=== PATIENT | female | born 1995 | race Two or more races ===

== ENCOUNTER 2017-05-01 20:04 | Emergency (ER) | payer MEDICAID ==
[2017-05-01] MEDS ORDERED: Nitrofurantoin Monohydrate/Macrocrystalline 100 MG Cap PO ONE (22:27)
--- NOTE | 2017-05-01 22:32 | EDM.PDOC ---
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 pain with dysuria. Pt is scheduled for a OB U/S this week. No trauma, no N/V/D or any other acute medical issues. BP 134/75 Pulse ox 98% RR 18 Temp 36.3 pulse 87 Onset Date: 04/30/17 Onset Time: 06:00 Duration: Day(s): Location: Reports: Abdomen, Pelvis Quality: Reports: Ache, Burning Severity: Mild Improves with: Reports: Rest Worsens with: Reports: Movement Associated Symptoms: Reports: No Other Symptoms Left Abdomen Pain Score (Numeric/FACES): 8 - Related Data Allergies Allergy/AdvReac Type Severity Reaction Status Date / Time No Known Allergies Allergy Verified 05/01/17 20:13 Home Meds: Home Meds Nitrofurantoin Monohyd/M-Cryst [Macrobid 100 mg Capsule] 100 mg PO BID #15 capsule 05/01/17 [Rx] Prenat Vit Comb.10/Iron/Fa/Dha [Vitafol-OB + DHA] 1 tab PO DAILY 05/01/17 [ History] Past Medical History - Past Health History Medical/Surgical History: Denies Medical/Surgical History Social & Family History - Tobacco Use Smoking Status *Q: Never Smoker Years of Tobacco use: 4 Packs/Tins Daily: 1 Second Hand Smoke Exposure: No - Caffeine Use Caffeine Use: Reports: Soda - Alcohol Use Days Per Week of Alcohol Use: 0 - Recreational Drug Use Recreational Drug Use: No ED ROS GENERAL - Review of Systems Review Of Systems: See Below Constitutional: Reports: No Symptoms HEENT: Reports: No Symptoms Respiratory: Reports: No Symptoms Cardiovascular: Reports: No Symptoms Endocrine: Reports: No Symptoms GI/Abdominal: Reports: No Symptoms : Reports: Dysuria Musculoskeletal: Reports: No Symptoms Skin: Reports: No Symptoms Neurological: Reports: No Symptoms Psychiatric: Reports: No Symptoms Hematologic/Lymphatic: Reports: No Symptoms Immunologic: Reports: No Symptoms ED EXAM, RENAL/ - Physical Exam Exam: See Below Exam Limited By: No Limitations General Appearance: Alert, WD/WN, Mild Distress Eye Exam: Bilateral Eye: Normal Inspection Ears: Normal External Exam Nose: Normal Inspection Throat/Mouth: Normal Inspection Head: Atraumatic, Normocephalic Neck: Normal Inspection, Supple, Non-Tender Respiratory/Chest: No Respiratory Distress, Lungs Clear, Normal Breath Sounds Cardiovascular: Normal Peripheral Pulses, Regular Rate, Rhythm, No Edema GI/Abdominal: Normal Bowel Sounds, Soft, Pelvis Stable, Tender (suprapubic) (Female) Exam: Deferred Rectal (Female) Exam: Deferred Back Exam: Normal Inspection Extremities: Normal Inspection Neurological: Alert, Oriented, CN II-XII Intact, Normal Cognition Psychiatric: Normal Affect, Normal Mood Skin Exam: Warm, Dry, Intact, Normal Color, No Rash Lymphatic: No Adenopathy Course - Vital Signs Text/Narrative:: 21 y.o.f AB1 came to the ed due to low abd. pain with dysuria. Pt is scheduled for a OB U/S this week. No trauma, no N/V/D or any other acute medical issues. BP 134/75 Pulse ox 98% RR 18 Temp 36.3 pulse 87 PE: WNWD F NAD with suprapubic tenderness Labs; UA pos for UTI Impression: , UTI Tx: Macrobid Reexam: Improved Plan: D/C with instructions Last Recorded V/S: Last Vital Signs Temp 36.8 C 05/01/17 20:16 Pulse 83 05/01/17 22:40 Resp 18 05/01/17 20:16 BP 123/70 05/01/17 22:40 Pulse Ox 96 05/01/17 20:16 - Orders/Labs/Meds Labs: Laboratory Tests 05/01/17 Range/Units 20:16 Urine Color Yellow (YELLOW) Urine Appearance Clear (CLEAR) Urine pH 6.0 (5.0-6.5) Ur Specific [place] 1.020 (1.010-1.025) Urine Protein Negative (NEGATIVE) mg/dL Urine Glucose (UA) Normal (NEGATIVE) mg/dL Urine Ketones Negative (NEGATIVE) mg/dL Urine Occult Blood Negative (NEGATIVE) Urine Nitrite Negative (NEGATIVE) Urine Bilirubin Negative (NEGATIVE) Urine Urobilinogen Normal (NEGATIVE) mg/dL Ur Leukocyte Esterase Moderate H (NEGATIVE) Urine RBC 0-5 (0) Urine WBC 0-5 (0) Ur Squamous Epith Cells Moderate H (NS,R,O) Urine Bacteria Few H (NS) Departure - Departure Time of Disposition: 22:29 Disposition: Home, Self-Care 01 Condition: Good Clinical Impression: UTI (urinary tract infection) Qualifiers: Weeks of gestation: less than 8 weeks Qualified Code(s): Z3A.01 - Less than 8 weeks gestation of - Discharge Information Prescriptions: Nitrofurantoin Monohyd/M-Cryst [Macrobid 100 mg Capsule] 100 mg PO BID #15 capsule Instructions: Urinary Tract Infection, Adult Referrals: Kade Cadena MD [Primary Care Provider] - Forms: ED Department Discharge Additional Instructions: Please increase water intake, take Abx as recommended, please f/u, come back if your symptoms get worse acutely
[2017-05-01 22:41] VITALS: BP 123/70
== END 2017-05-01 22:40 | disposition home or self-care (01) ==
LOC: FB.ED 20:04
DX: O23.41 Unspecified infection of urinary tract in pregnancy, first trimester (principal); Z3A.01 Less than 8 weeks gestation of pregnancy
CPT/HCPCS: 81001; 99283; A9270

== ENCOUNTER 2017-06-04 22:19 | Emergency (ER) | payer MEDICAID ==
[2017-06-04 22:35] VITALS: BP 132/74
[2017-06-04] MEDS ORDERED: diphenhydrAMINE 50 MG/ML SDV IM ONE (22:40)
[2017-06-04] MEDS ORDERED: Ketorolac 60 MG/2 ML SDV IM ONE (22:40)
[2017-06-04] MEDS ORDERED: Metoclopramide 10 MG/2 ML SDV IM ONE (22:41)
--- NOTE | 2017-06-05 04:23 | ER ---
DATE SEEN: 06/04/2017 CHIEF COMPLAINT: Headache. HISTORY OF PRESENT ILLNESS: This is a 21-year-old female, who is complaining of a headache for the last 2 days, pounding bitemporal headache, worsened with lights, characteristic of migraine headache that she has had before. She is unable to take the Imitrex because she is currently about 11 weeks' . REVIEW OF SYSTEMS: Has had fever and cold symptoms and a cough. No urinary symptoms or visual disturbance. MEDICATIONS: Reviewed. ALLERGIES: None PHYSICAL EXAMINATION: GENERAL: She is not in distress. VITAL SIGNS: Her blood pressure is normal. She is well hydrated. HEAD: Normal size. EYES: Normal pupils. NECK: Supple. NEUROLOGIC: Nonfocal. IMPRESSION: 1. Migraine headache. 2. Upper respiratory infection. TREATMENT: Ketorolac, Benadryl, and Reglan IM. The patient was discharged home. Advised to take Tylenol or ibuprofen, drink fluids, and follow up in the office as needed. Return to the ED this weekend with any worsening of symptoms. TIME SEEN: 2230 hours. /[id number] ARMANDO/KARTHIKEYAN
== END 2017-06-04 22:52 | disposition home or self-care (01) ==
LOC: FB.ED 22:19
DX: G43.909 Migraine, unspecified, not intractable, without status migrainosus (principal); J06.9 Acute upper respiratory infection, unspecified
CPT/HCPCS: 96372; 99282; J1200; J1885; J2765

== ENCOUNTER 2018-01-26 00:42 | Day surgery (SDC) | payer MEDICAID ==
[2018-01-26] MEDS ORDERED: Morphine 2 MG/ML Syringe IVPUSH PRN ×2 (01:14→09:13)
[2018-01-26] MEDS ORDERED: Lactated Ringers 1,000 ML IV SCH (01:15)
[2018-01-26] MEDS: cefOXitin 2 GM in Sodium Chloride 0.9% 100 ML IV SCH ×2 (02:00→07:50)
--- NOTE | 2018-01-26 05:38 | HP ---
ADMISSION DATE: 01/26/2018 HISTORY OF PRESENT ILLNESS: This 22-year-old female presented to the hospital in [place] late last night because of a history worsening abdominal pain. She states that for about the past week, she has had some symptoms of diarrhea and other flu-like symptoms. These seem to resolve, but today, at about 1400 hours, she developed mid upper abdominal pain, which persisted and migrated to the right lower quadrant. Because of the worsening pain, she presented to the emergency room in [place], where she was evaluated. Diagnostic studies at that time included laboratory studies of a serum white blood cell count of 15,500; 78% segs and 14% lymphs. Chemistry studies were unremarkable. Urinalysis is negative. A CT scan of the abdomen was performed, which shows some mild inflammatory changes around the tip of the appendix, suggesting early appendicitis. The remainder of the exam was unremarkable. The patient has never had pain like this in the past. Currently, the pain is more severe in the right lower quadrant, although there is still some residual in the upper mid abdomen. PAST MEDICAL HISTORY: Shows previous surgeries to include the laparoscopic removal of a dermoid cyst from the left ovary as well as a cholecystectomy. It is also significant to note that she delivered vaginally a baby 5 weeks ago. Her only other child is 6 years old. The patient is otherwise generally healthy. She does have migraine headaches, for which she takes Imitrex, but does not take any other prescription medications. ALLERGIES: She has no known drug allergies. HABITS: She denies the use of tobacco currently, although is a former smoker. SOCIAL HISTORY: The patient does not work outside the home. She is single, but is accompanied by a male friend. FAMILY HISTORY: Negative for any known anesthetic complications or bleeding disorders. REVIEW OF SYSTEMS: System review shows no recent cough, cold, or sore throat symptoms. She does have a known history of a mild heart murmur since . She does state that she occasionally gets some mild palpitations from this, but it has never interfered with any of her physical activity, and she has never been told that she needed to take any medication for this. She has no shortness of breath and no chest pain. Prior to this episode, her appetite has been satisfactory, and she has had no difficulty voiding. No unusual bleeding post delivery and no extremity swelling or induration. PHYSICAL EXAMINATION: VITAL SIGNS: Show a pulse of 90, blood pressure is 124/77, pulse is 88, and O2 saturation is 95 on room air. GENERAL: The patient is an adult female. She is in no acute distress. HEAD: Normocephalic. EYES: There is no scleral icterus. NECK: No cervical masses or lymphadenopathy is noted. HEART: Regular. Slight murmur is heard. LUNGS: Clear. Breath sounds are equal. There is no wheezing. ABDOMEN: Currently soft. There is mild tenderness to direct palpation in the epigastrium and slightly more severe tenderness with some guarding on deep direct palpation in the right lower quadrant. There is no distention and no abdominal masses. EXTREMITIES: Show no calf induration or tenderness and no ankle swelling. IMPRESSION: Acute appendicitis. PLAN: The patient will be admitted. She will undergo IV hydration, and we will plan a laparoscopic appendectomy early this morning. I have discussed the proposed operative procedure with the patient and reviewed the indications, options, and risks. She appears to understand and agrees to proceed. /[id number] ANANT/KARTHIKEYAN
[2018-01-26] MEDS ORDERED: Succinylcholine 200 MG/10 ML MDV IV ONE (08:00)
[2018-01-26] MEDS ORDERED: Propofol 200 MG/20 ML SDV IV ONE (08:00)
[2018-01-26] MEDS ORDERED: Midazolam 1 MG/ML 2 ML SDV IV ONE (08:00)
[2018-01-26] MEDS ORDERED: Dexamethasone 4 MG/ML 5 ML MDV IVPUSH ONE (08:00)
[2018-01-26] MEDS ORDERED: Neostigmine Methylsulfate 10 MG/10 ML MDV IVPUSH ONE (08:00)
[2018-01-26] MEDS ORDERED: Rocuronium 100 MG/10 ML MDV IV ONE (08:00)
[2018-01-26] MEDS ORDERED: Ondansetron 4 MG/2 ML SDV IVPUSH ONE (08:00)
[2018-01-26] MEDS ORDERED: HYDROmorphone 2 MG/ML SDV IV ONE (08:00)
[2018-01-26] MEDS ORDERED: Glycopyrrolate 0.2 MG/ML 5 ML MDV IV ONE (08:00)
[2018-01-26] MEDS ORDERED: fentaNYL 100 MCG/2 ML SDV IV ONE (08:00)
[2018-01-26] MEDS ORDERED: Lidocaine 2% 100 MG/5 ML Syringe IVPUSH ONE (08:00)
[2018-01-26] MEDS ORDERED: Bupivacaine 0.5%/EPINEPHrine 1:200,000 50 ML MDV INJECT ONE (08:15)
[2018-01-26] MEDS ORDERED: Ondansetron 4 MG/2 ML SDV IVPUSH PRN (09:13)
[2018-01-26] MEDS ORDERED: Acetaminophen/HYDROcodone 325-5 MG Tab PO PRN ×2 (09:13)
--- NOTE | 2018-01-26 09:13 | PCM.OPNOTE ---
- General Post-Op/Procedure Note Date of Surgery/Procedure: 01/26/18 Operative Procedure(s): Laproscopic Appendectomy Findings: Acutely inflamed appendix Pre Op Diagnosis: Acute appendicitis Post-Op Diagnosis: Same Anesthesia Technique: General ET Tube Primary Surgeon: Wali Landis Pathology: Appendix Output, Urine Amount: 0 EBL in mLs: 20 Complications: None Condition: Good
[2018-01-26] MEDS ORDERED: cefOXitin 2 GM in Sodium Chloride 0.9% 50 ML IV SCH (09:15)
[2018-01-26] MEDS: Lactated Ringers 1,000 ML IV SCH ×2 (13:43→21:55)
[2018-01-26] MEDS ORDERED: cefOXitin 2 GM in Sodium Chloride 0.9% 100 ML IV SCH (14:00)
[2018-01-26] MEDS: cefOXitin 2 GM Vial IVPUSH SCH ×2 (14:21→20:12)
--- NOTE | 2018-01-26 15:20 | OR ---
DATE OF OPERATION: 01/26/2018 SURGEON: Wali Landis MD PREOPERATIVE DIAGNOSIS: Acute appendicitis. POSTOPERATIVE DIAGNOSIS: Acute appendicitis. OPERATION PERFORMED: Laparoscopic appendectomy. INDICATIONS FOR SURGERY: This 22-year-old female developed abdominal pain yesterday. She presented to the [place] [facility], whereupon evaluation a CT scan identified findings consistent with acute appendicitis. She is transferred to this facility for definitive management. FINDINGS: The patient's appendix was acutely inflamed in its distal aspect. There is some edema of the adjacent fatty tissue and of the appendix itself. There is hyperemia of the distal portion of the appendix as well, but there was no indication of any perforation. No exudate is noted, and the adjacent cecum and small bowel appeared normal. PROCEDURE IN DETAIL: The patient was taken to the operating room. She was given general endotracheal anesthesia, and the abdomen was sterilely prepped with Betadine and draped. An infraumbilical incision was made. Dissection proceeded down onto the underlying fascia. The fascia was opened with anchoring sutures of 0 Vicryl placed at the corners of the fascial incision. The peritoneum was entered under direct visualization and a 12 mm Galen trocar was placed here. A 5 mm laparoscopic camera was then inserted, and pneumoperitoneum to a pressure of 15 mmHg was achieved with carbon dioxide. 5 mm trocars were placed in the suprapubic midline and also in the right lower quadrant. All trocar sites were infiltrated with Marcaine prior to incision. Intra-abdominal inspection was carried out, and attention was turned to the appendix. It was identified and secured with grasping forceps. A small window was made in the mesoappendix adjacent to the cecum and the cecal appendiceal junction is then stapled across with an Endo-CHARITY stapler using 2.5 mm staple length. The cecal staple line was carefully inspected and found to appear of good quality. Another firing of the 2.5 mm guadalupe across the mesoappendix was then carried out completely dividing the mesoappendix and freeing the appendix. The appendix was placed into an Endo retrieval bag and extracted through the largest trocar site. Reinspection of the operative region was performed. Copious irrigation was carried out, and when inspection showed no sign of bleeding or any other complication, the trocars were removed under direct visualization and the pneumoperitoneum was evacuated. The fascia of the umbilical trocar site was closed with interrupted [id number] 0 Vicryl sutures. The wounds were irrigated with Betadine and saline solution. Skin incisions approximated with interrupted 4-0 Vicryl in a subcuticular stitch. Steri-Strips and benzoin were applied. Antibiotic ointment and sterile dressings were placed. The patient was awakened, extubated, and taken from the operating room in satisfactory condition. ESTIMATED BLOOD LOSS: 20 mL. COMPLICATIONS: None. PROGNOSIS: Good. /[id number] ANANT/KARTHIKEYAN
[2018-01-26] MEDS: Ketorolac 30 MG/ML SDV IVPUSH SCH (19:04)
[2018-01-27] MEDS: Ketorolac 30 MG/ML SDV IVPUSH SCH ×2 (00:40→07:25)
[2018-01-27] MEDS: cefOXitin 2 GM Vial IVPUSH SCH ×2 (03:08→09:07)
[2018-01-27] MEDS: Lactated Ringers 1,000 ML IV SCH (05:59)
--- NOTE | 2018-01-27 08:26 | PCM.SURGPN ---
- General Info Date of Service: 01/27/18 Date of Surgery/Procedure: 01/26/18 POD#: 1 Post-Op Diagnosis: Acute Appendicitis Functional Status: Reports: Pain Controlled (Moderate soreness near umbilicus but no diffuse abdominal pain) - Review of Systems Pulmonary: Reports: No Symptoms Gastrointestinal: Reports: Other (Had nausea with some vomiting yesterday but this has clear and is now tolerating liquids and light diet slowly) Musculoskeletal: Reports: No Symptoms - Patient Data Vitals - Most Recent: Last Vital Signs Temp 97.9 F 01/27/18 04:00 Pulse 59 L 01/27/18 04:00 Resp 16 01/27/18 04:00 BP 109/60 01/27/18 04:00 Pulse Ox 94 L 01/27/18 04:00 Weight - Most Recent: 221 lb 4 oz I&O - Last 24 Hours: Intake & Output 01/26/18 01/27/18 01/27/18 22:59 06:59 14:59 Intake Total 1020 1230 Output Total 1300 Balance -280 1230 Lab Results Last 24 Hrs: Laboratory Results - last 24 hr 01/27/18 Range/Units 06:30 WBC 8.7 (4.5-12.0) X10-3/uL RBC 4.21 (3.23-5.20) x10(6)uL Hgb 12.7 (11.5-15.5) g/dL Hct 36.6 (30.0-51.3) % MCV 87.1 (80-96) fL MCH 30.2 (27.7-33.6) pg MCHC 34.7 (32.2-35.4) g/dL RDW 12.0 (11.5-15.5) % Plt Count 231 (125-369) X10(3)uL MPV 9.4 (7.4-10.4) fL Neut % (Auto) 73.2 (46-82) % Lymph % (Auto) 19.9 (13-37) % [place] % (Auto) 5.9 (4-12) % Eos % (Auto) 1 (1.0-5.0) % Baso % (Auto) 0 (0-2) % Neut # (Auto) 6.4 (1.6-8.3) # Lymph # (Auto) 1.7 (0.6-5.0) # [place] # (Auto) 0.5 (0.0-1.3) # Eos # (Auto) 0.1 (0.0-0.8) # Baso # (Auto) 0.0 (0.0-0.2) # Med Orders - Current: Current Medications Hydrocodone Bitart/Acetaminophen ([place] 325-5 Mg) 1 tab PO Q4H PRN PRN Reason: Pain (mild 1-3) Hydrocodone Bitart/Acetaminophen ([place] 325-5 Mg) 2 tab PO Q4H PRN PRN Reason: Pain (moderate 4-6) Cefoxitin Sodium (Mefoxin) 2 gm IVPUSH Q6H [facility] Last Admin: 01/27/18 03:08 Dose: 2 gm Lactated Ringer's (Ringers, Lactated) 1,000 mls @ 125 mls/hr IV ASDIRECTED [facility] Last Admin: 01/27/18 05:59 Dose: 125 mls/hr Ketorolac Tromethamine (Toradol) 30 mg IVPUSH Q6H [facility] Last Admin: 01/27/18 07:25 Dose: 30 mg Ondansetron HCl (Zofran) 4 mg IVPUSH Q6H PRN PRN Reason: Nausea/Vomiting Last Admin: 01/26/18 15:29 Dose: 4 mg Multivit/Folic Acid/Iron (-U) 1 each PO DAILY [facility] Discontinued Medications Bupivacaine HCl/Epinephrine Bitart (Marcaine 0.5%/Epinephrine 1:200,000) 20 ml INJECT .STK-MED ONE Stop: 01/26/18 08:16 Last Admin: 01/26/18 08:15 Dose: 20 ml Cefoxitin Sodium 2 gm/ Sodium (Chloride) 100 mls @ 200 mls/hr IV Q6H [facility] Last Admin: 01/26/18 07:50 Dose: 200 mls/hr Lactated Ringer's (Ringers, Lactated) 1,000 mls @ 125 mls/hr IV ASDIRECTED [facility] Last Admin: 01/26/18 01:55 Dose: 125 mls/hr Morphine Sulfate (Morphine) 2 mg IVPUSH Q1H PRN PRN Reason: Pain Last Admin: 01/26/18 01:56 Dose: 2 mg Morphine Sulfate (Morphine Sulfate) 4 mg IVPUSH Q6H PRN PRN Reason: Pain Morphine Sulfate (Morphine) 2 mg IVPUSH Q1H PRN PRN Reason: Pain (severe 7-10) Last Admin: 01/26/18 14:30 Dose: 2 mg - Exam Wound/Incisions: Healing Well, Drainage (mild). No: Erythema General: Alert, Oriented GI/Abdominal Exam: Soft, Non-Tender (except near incisions) Extremities: Non-Tender, No Pedal Edema - Problem List Review Problem List Initiated/Reviewed/Updated: Yes - My Orders Last 24 Hours: Active Orders 24 hr Category Date Time Status Patient Status [ADT] Routine ADT 01/26/18 09:13 Active Ambulate [RC] 09,13,17,21 Care 01/26/18 09:13 Active Antiembolic Devices [RC] .Routine Care 01/26/18 09:15 Active Intake and Output [RC] 06,14,22 Care 01/26/18 09:14 Active Oxygen Therapy [RC] PRN Care 01/26/18 09:13 Active RT Incentive Spirometry [RC] Q1HWA Care 01/26/18 09:13 Active Vital Signs [RC] 08,12,16,20,00,04 Care 01/26/18 09:13 Active Clear Liquid Diet [DIET] Diet 01/26/18 Lunch Ordered Full Liquid Diet [DIET] Diet 01/27/18 Breakfast Ordered Acetaminophen/HYDROcodone [[place] 325-5 MG] Med 01/26/18 09:13 Active 1 tab PO Q4H PRN Acetaminophen/HYDROcodone [Antigo 325-5 MG] Med 01/26/18 09:13 Active 2 tab PO Q4H PRN Ketorolac [Toradol] Med 01/26/18 19:00 Active 30 mg IVPUSH Q6H Lactated Ringers [Ringers, Lactated] 1,000 ml Med 01/26/18 09:15 Active IV ASDIRECTED Ondansetron [Zofran] Med 01/26/18 09:13 Active 4 mg IVPUSH Q6H PRN Vit/FA/Fe Fumarate [-U] Med 01/27/18 09:00 Active 1 each PO DAILY cefOXitin [Mefoxin] Med 01/26/18 14:00 Active 2 gm IVPUSH Q6H DVT/VTE Prophylaxis Reflex [OM.PC] Per Unit Routine Oth 01/26/18 09:15 Ordered Medication Orders Hydrocodone Bitart/Acetaminophen ([place] 325-5 Mg) 1 tab PO Q4H PRN PRN Reason: Pain (mild 1-3) Hydrocodone Bitart/Acetaminophen ([place] 325-5 Mg) 2 tab PO Q4H PRN PRN Reason: Pain (moderate 4-6) Cefoxitin Sodium (Mefoxin) 2 gm IVPUSH Q6H [facility] Last Admin: 01/27/18 03:08 Dose: 2 gm Admin: 01/26/18 20:12 Dose: 2 gm Admin: 01/26/18 14:21 Dose: 2 gm Lactated Ringer's (Ringers, Lactated) 1,000 mls @ 125 mls/hr IV ASDIRECTED [facility] Last Admin: 01/27/18 05:59 Dose: 125 mls/hr Infusion: 01/27/18 05:55 Dose: 125 mls/hr Admin: 01/26/18 21:55 Dose: 125 mls/hr Infusion: 01/26/18 21:43 Dose: 125 mls/hr Admin: 01/26/18 13:43 Dose: 125 mls/hr Ketorolac Tromethamine (Toradol) 30 mg IVPUSH Q6H [facility] Last Admin: 01/27/18 07:25 Dose: 30 mg Admin: 01/27/18 00:40 Dose: 30 mg Admin: 01/26/18 19:04 Dose: 30 mg Ondansetron HCl (Zofran) 4 mg IVPUSH Q6H PRN PRN Reason: Nausea/Vomiting Last Admin: 01/26/18 15:29 Dose: 4 mg Multivit/Folic Acid/Iron (-U) 1 each PO DAILY [facility] - Assessment Assessment (Free Text/Narrative):: POD#1 Appendectomy - doing well - Plan Plan (Free Text/Narrative):: Discharge F/U in 1 week
[2018-01-27] MEDS ORDERED: Prenatal Multivitamin with Calcium/Folic Acid/Fe Fumarate Cap PO SCH (09:00)
[2018-01-27 09:23] VITALS: BP 124/77
== END 2018-01-27 10:00 | disposition home or self-care (01) ==
LOC: FB.MS 00:42 → FB.SDS 00:42 → FB.MS 00:42 → UNDOADMIN 00:42 → PREINTOOBSV 02:25 → EDSTATUS 02:28 → FB.SDS 01-27 10:00
PROVIDERS: ATTEND Surgery
DX: K35.80 Unspecified acute appendicitis (principal); Z79.899 Other long term (current) drug therapy; Z87.891 Personal history of nicotine dependence
CPT/HCPCS: 36415; 85025; 88304; A9270-GY; J0330; J0694; J1100; J1170; J1885; J2001; J2250; J2270; J2405; J2704; J2710; J3010; J3490; J7030; J7120